=== PATIENT | female | born 1960 | race Caucasian/White ===

== ENCOUNTER 2022-08-03 05:12 | Observation (INO) ==
[2022-08-03] MEDS ORDERED: Aspirin 81 MG TAB.CHEW PO ONE (05:25)
[2022-08-03] MEDS ORDERED: Nitroglycerin 0.4 MG TAB.SUBL SL PRN ×2 (05:25→08:41)
[2022-08-03 06:03] LABS: Basophils # 0.1 K/mcL (0.0-0.2); Basophils % 0.7 %; Eosinophils # 0.2 K/mcL (0.0-0.6); Eosinophils % 3.1 %; Hematocrit 30.5 % (35.3-44.9); Hemoglobin 10.7 g/dL (11.5-15.4); Immature Granulocytes % 0.4 % (0-4); Lymphocytes # 1.6 K/mcL (0.6-4.6); Lymphocytes % 21.2 %; Mean Corpuscular HGB Conc 35.1 g/dL (31.6-35.5); Mean Corpuscular Volume 94.1 fL (83.0-100.0); Mean Platelet Volume 9.6 fL (9.4-12.4); Monocytes # 0.4 K/mcL (0.0-1.3); Monocytes % 5.9 %; Neutrophils # 5.1 K/mcL (1.6-8.9); Platelet Count 217 K/mcL (140-400); Red Blood Count 3.24 M/mcL (3.82-4.97); Red Cell Distribution Width 12.4 % (11.5-14.5); Segmented Neutrophils % 68.7 %; White Blood Count 7.4 K/mcL (4.3-11.1)
[2022-08-03 06:10] LABS: INR 1.2; Prothrombin Time 12.9 Seconds (9.4-12.1)
[2022-08-03 06:13] LABS: Activated Partial Thrombo Time 33.5 Seconds (26.0-36.0)
[2022-08-03 06:24] LABS: BUN/Creatinine Ratio 8 (6-26); Blood Urea Nitrogen 8 mg/dL (8-23); Calcium 7.3 mg/dL (8.6-10.3); Carbon Dioxide 27 mEq/L (23-29); Chloride 108 mEq/L (98-107); Glucose 90 mg/dL (70-105); Osmolality,Calculated 296 (280-300); Potassium 3.3 mEq/L (3.5-5.1); Sodium 144 mEq/L (136-145)
[2022-08-03 06:25] LABS: Troponin I < 0.03 ng/mL (< 0.04)
[2022-08-03] MEDS ORDERED: Iopamidol - 370 500 ML MLS IVP ONE (06:34)
[2022-08-03] MEDS ORDERED: Ondansetron 4 MG/2 ML VIAL IVP PRN (08:36)
[2022-08-03] MEDS ORDERED: Naloxone 0.4 MG/ML INJ IVP PRN (08:36)
[2022-08-03] MEDS ORDERED: Furosemide 20 MG/2 ML VIAL IVP ONE (08:43)
[2022-08-03] MEDS ORDERED: lisinopriL 10 MG TABLET PO SCH (09:00)
[2022-08-03] MEDS: *HR* Heparin 5,000 UNIT/ML VIAL SQ SCH ×2 (15:44→20:40)
[2022-08-03] MEDS: cloNIDine HCL 0.1 MG TABLET PO SCH ×2 (17:33→20:40)
[2022-08-03] MEDS ORDERED: niCARdipine 20 MG/200 ML MLS IVC SCH (18:15)
[2022-08-03] MEDS: Acetaminophen 325 MG TABLET PO PRN (20:40)
[2022-08-03] MEDS ORDERED: cloNIDine HCL 0.1 MG TABLET PO SCH (21:00)
[2022-08-04 04:54] LABS: Basophils # 0.1 K/mcL (0.0-0.2); Basophils % 0.9 %; Eosinophils # 0.2 K/mcL (0.0-0.6); Eosinophils % 3.8 %; Hematocrit 30.5 % (35.3-44.9); Hemoglobin 10.6 g/dL (11.5-15.4); Immature Granulocytes % 0.3 % (0-4); Lymphocytes # 1.8 K/mcL (0.6-4.6); Lymphocytes % 31.6 %; Mean Corpuscular HGB Conc 34.8 g/dL (31.6-35.5); Mean Corpuscular Hemoglobin 32.3 pg (28.0-33.3); Mean Platelet Volume 9.5 fL (9.4-12.4); Monocytes # 0.4 K/mcL (0.0-1.3); Monocytes % 7.3 %; Neutrophils # 3.2 K/mcL (1.6-8.9); Platelet Count 222 K/mcL (140-400); Red Blood Count 3.28 M/mcL (3.82-4.97); Red Cell Distribution Width 12.2 % (11.5-14.5); Segmented Neutrophils % 56.1 %; White Blood Count 5.7 K/mcL (4.3-11.1)
[2022-08-04 05:17] LABS: Albumin 3.6 g/dL (3.5-5.7); Albumin/Globulin Ratio 1.3 (1.1-2.2); Bilirubin,Total 0.7 mg/dL (0.3-1.0); Calcium 7.4 mg/dL (8.6-10.3); Chol/HDL Ratio 3.9 (0-4.9); Globulin 2.8 g/dL (2.4-3.5); Potassium 3.4 mEq/L (3.5-5.1); Total Protein 6.4 g/dL (6.4-8.9)
[2022-08-04] MEDS: *HR* Heparin 5,000 UNIT/ML VIAL SQ SCH (05:28)
[2022-08-04] MEDS ORDERED: Regadenoson 0.4 MG/5 ML SYRINGE IVP ONE (08:16)
[2022-08-04] MEDS ORDERED: Spironolactone 25 MG TABLET PO SCH (09:00)
[2022-08-04] MEDS ORDERED: Aspirin Enteric Coated 81 MG Tablet PO SCH (09:00)
[2022-08-04] MEDS: Acetaminophen 325 MG TABLET PO PRN (10:11)
[2022-08-04] MEDS: cloNIDine HCL 0.1 MG TABLET PO SCH (10:12)
[2022-08-04 11:36] VITALS: BP 154/89; PULSE 60; TEMP 97.8; O2SAT 93
[2022-08-04] MEDS ORDERED: ALPRAZolam 0.5 MG TABLET PO PRN (12:24)
[2022-08-05] MEDS ORDERED: NON-FORMULARY MEDICATION 1 EACH EACH (Losartan Potassium [Cozaar] 100 MG Tablet) PO SCH (09:00)
[2022-08-26] MEDS ORDERED: Cyanocobalamin (B-12) 1,000 MCG/ML VIAL IM SCH (09:00)
== END 2022-08-04 14:46 | disposition home or self-care (01) ==
LOC: 3BNU 05:12 → EMEROOARM 05:12 → SUATTDRO 07:40 → 3BNU 08:31
PROVIDERS: ADMIT General Practice; ATTEND Family Medicine